=== PATIENT | male | born 1950 | race Caucasian/White ===

== ENCOUNTER 2021-10-21 05:27 | Day surgery (SDC) | payer OTHER, BC ==
[2021-10-19 12:31] VITALS: BMI 26.5
[2021-10-21] MEDS ORDERED: ROPIVACAINE HCL 0.5% 30ML VIAL ONE (07:13)
[2021-10-21] MEDS ORDERED: DEXAMETHASONE SOD PHOSPHATE 10 MG/1 ML VIAL ONE (07:13)
[2021-10-21] MEDS ORDERED: MIDAZOLAM HCL 2 MG/2 ML SINGLE DOSE VIAL ONE ×2 (07:14)
[2021-10-21] MEDS ORDERED: DEXAMETHASONE SOD PHOSPHATE 4 MG/1 ML VIAL ONE (07:19)
[2021-10-21] MEDS ORDERED: LIDOCAINE HCL/PF 2% SDV 5ML VIAL ONE (07:19)
[2021-10-21] MEDS ORDERED: ONDANSETRON 4 MG/2 ML VIAL ONE (07:19)
[2021-10-21] MEDS ORDERED: PROPOFOL 20 ML ONE (07:20)
[2021-10-21] MEDS ORDERED: BUPIVACAINE HCL/PF 0.5% (5MG/ML) 10 ML VIAL ONE (07:47)
[2021-10-21] MEDS ORDERED: BUPIVACAINE LIPOSOME/PF (EXPAREL) 266 MG/20 ML VIAL ONE (07:47)
[2021-10-21] MEDS ORDERED: ROCURONIUM BROMIDE 100 MG/10 ML VIAL ONE (08:32)
[2021-10-21] MEDS ORDERED: ceFAZolin SODIUM 1 GM VIAL IVPB ONE (08:39)
[2021-10-21] MEDS ORDERED: ceFAZolin SODIUM 1 GM VIAL ONE ×2 (08:41→21:16)
[2021-10-21] MEDS ORDERED: DESFLURANE GAS 240 ML BOTTLE IH ONE (09:49)
[2021-10-21] MEDS ORDERED: ONDANSETRON 4 MG/2 ML VIAL IVPUSH PRN (11:06)
[2021-10-21] MEDS ORDERED: PROMETHAZINE HCL 25 MG/1 ML VIAL IVPUSH PRN (11:06)
[2021-10-21] MEDS ORDERED: oxyCODONE HCL 5 MG TABLET PO PRN ×3 (11:06→13:16)
[2021-10-21] MEDS ORDERED: GLYCOPYRROLATE 0.2 MG/1 ML VIAL ONE (12:19)
[2021-10-21] MEDS ORDERED: NEOSTIGMINE METHYLSULFATE 0.5 MG/ML - 10 ML MDV ONE (12:19)
[2021-10-21] MEDS ORDERED: ACETAMINOPHEN 1000 MG/100 ML VIAL IVPB ONE (14:15)
[2021-10-21] MEDS ORDERED: ACETAMINOPHEN INJECTION 100 ML IVPB ONE (14:50)
[2021-10-21] MEDS: ACETAMINOPHEN 500 MG TABLET (FP) PO SCH ×2 (15:15→21:58)
[2021-10-21] MEDS ORDERED: ceFAZolin 2 GRAM PREMIX BAG IVPB SCH (20:00)
[2021-10-21] MEDS ORDERED: SODIUM CHLORIDE 100 ML IVPB ONE (21:16)
[2021-10-21] MEDS: CEFAZOLIN 2 GM in SODIUM CHLORIDE 100 ML IVPB SCH (21:59)
[2021-10-21] MEDS: LACTATED RINGERS SOLUTION 1,000 ML IV SCH (22:02)
[2021-10-22] MEDS: ACETAMINOPHEN 500 MG TABLET (FP) PO SCH ×2 (02:47→10:21)
[2021-10-22] MEDS ORDERED: SODIUM CHLORIDE 100 ML IVPB ONE (02:54)
[2021-10-22] MEDS ORDERED: ceFAZolin SODIUM 1 GM VIAL ONE (02:54)
[2021-10-22] MEDS: LACTATED RINGERS SOLUTION 1,000 ML IV SCH (02:56)
[2021-10-22] MEDS: CEFAZOLIN 2 GM in SODIUM CHLORIDE 100 ML IVPB SCH (02:59)
[2021-10-22 13:43] VITALS: BP 134/74; PULSE 74; TEMP 99
== END 2021-10-22 17:20 | disposition home or self-care (01) ==
LOC: JASUSAT 05:27 → J6S 16:20 → JASUSAT 10-22 17:20
PROVIDERS: ATTEND Orthopaedic Surgery
PROC: 0RRK0JZ Replacement of Left Shoulder Joint with Synthetic Substitute, Open Approach (ICD-10-PCS; principal; 2021-10-21 08:00)
DX: M19.012 Primary osteoarthritis, left shoulder (principal)
CPT/HCPCS: 23472; C1713; 73030-TC-LT-FY; 82962; 94760; 97116-GP; 97162-GP; J0131; J1100